=== PATIENT | male | born 1945 | race Caucasian/White ===

== ENCOUNTER 2016-08-20 10:31 | Inpatient (IN) | payer MEDICARE, OTHER ==
[~2016-08-20] VITALS: Ht 175.3 cm; Wt 75.6 kg
[~2016-08-20 10:31] MED LIST: BACTRIM DS DPS1 TAB PO; BENICAR HCT 401 EAC1 PO; COUMADIN DPS3 MG PO; COUMADIN6 MG PO; DELTASONE DPS5 MG PO; GLUCOPHAGE1000 MG PO; INVOKANA300 MG PO; JANUVIA100 MG PO; KEFLEX-DPS500 MG PO; LEVAQUIN DPS500 MG PO; MAALOX DPS30 ML PO; MICRONASE DPS5 MG PO; MIRALAX PACKET17 GM PO; PEPCID DPS20 MG PO; PLAQUENIL DPS200 MG PO; SURFAK DPS240 MG PO; TYLENOL DPS325 MG PO
--- NOTE | 2016-08-21 07:36 | HP ---
ADMIT: 08/20/2016 RM/LOC: 518 [facility] MR#: [id number] 2620 [facility] [address] [place] [phone] MILI GARNER [address] [facility] [place] [address] History and Physical SEX: M AGE: 71 : 1945 DATE OF SERVICE: CHIEF COMPLAINT: Leg weakness and dehydration. HISTORY OF PRESENT ILLNESS: A 71-year-old male, lives at home with his sister who is his power of banking attorney and caregiver. Recently, he has had decreased oral intake but no vomiting. No fever. He has no urgency, frequency, or dysuria, has had problems with loose stools. This morning, he was not able to stand up or bear any weight due to leg weakness. He went down to the floor. It took several family members' considerable effort to got him into a wheelchair and brought him up to my office. In the office, he was found to be moderately dehydrated with dry mouth, not able to test for orthostasis, not able to stand up. He is admitted to the hospital at this time for dehydration and possible UTI, possible sepsis along with generalized weakness. His sister states he is having episodes over the last couple of months, where one day he will be able to walk the next day, his legs are too weak and he cant walk, just give out on him. PAST MEDICAL HISTORY: Hospitalized here last on July 06 of this year with vomiting, has history of atrial fibrillation, chronic or permanent, on anticoagulant therapy. He has diabetes mellitus type 2, hypertension, mild intellectual impairment, marked hearing impairment, rheumatoid arthritis, history of acne rosacea, and BPH with previous TURP. PAST SURGICAL HISTORY: The only surgeries include the TURP. ALLERGIES: NONE. CURRENT MEDICATIONS: Currently he is on: 1. Pepcid. 2. Lanoxin. 3. Verelan PM. 4. Plaquenil. 5. Coumadin. 6. Glyburide. 7. Januvia. 8. Metformin. SOCIAL HISTORY: He is never , had lived with his mother until her recent and then was living on his own until recently, when he became too weak as his sisters taken him. He does not use tobacco or alcohol. REVIEW OF SYSTEMS: Ten-point review of system negative from previous history and physical. FAMILY HISTORY: Positive coronary artery disease, atrial fibrillation. PHYSICAL EXAMINATION: GENERAL: A 71-year-old male, who is alert, cooperative, he is in a wheelchair. ADMIT: 08/20/2016 RM/LOC: 518 [facility] MR#: [id number] [address] [address] MILI GARNER [address] [place] [address] History and Physical SEX: M AGE: 71 : 1945 VITAL SIGNS: BP is 126/82, respiratory rate is 22, heart rate 95, temp is 98.5, O2 saturation is 96% on room air. Eyes PERRL. EOMs intact. TMs not seen. Throat is dry. No exudate. No inflammation. NECK: Supple. No meningeal signs. No lymphadenopathy. LUNGS: Clear to auscultation. Respirations not labored. HEART: Regular rate. No lifts, thrills, heaves. No murmur. ABDOMEN: Soft. Bowel sounds normoactive. No mass, megaly or tenderness. /RECTAL: Deferred. EXTREMITIES: No clubbing, cyanosis, or edema. DIAGNOSTIC IMPRESSION: 1. Moderate dehydration. 2. Lower extremity weakness, symmetrical. No focal signs. 3. Diabetes mellitus type 2. 4. Diabetic neuropathy. 5. Atrial fibrillation, on Coumadin therapy. 6. Hearing impairment. 7. Rheumatoid arthritis. PLAN: We will admit to hospital for IV fluids, monitor his blood sugars, and sliding scale insulin. Neurology consult. We will get MRI of the lumbosacral spine. Ponce Soto MD/ clementina JOB #: [id number] CC: Ponce Soto, Attending Physician Ponce Soto, Family Physician
--- NOTE | 2016-08-21 16:56 | CO ---
ADMIT: 08/20/2016 RM/LOC: 518 [facility] MR#: [id number] [address] [address] MILI GARNER [address] [place] [address] Consultation SEX: M AGE: 71 : 1945 DATE OF CONSULTATION: 08/20/2016 ATTENDING PHYSICIAN: Ponce Soto CONSULTING PHYSICIAN: Miller Muñoz MD REASON FOR CONSULTATION: Weakness of the extremities and falls. HISTORY OF PRESENT ILLNESS: The patient is a 71-year-old gentleman with past medical history as below, who was admitted for lower extremity weakness and falls. His family reports that he had some falls back in June after which he started to be shuffling more noticeably. He was gradually worsening over time and has an episode when he stands up uses a walker, and then after a few steps goes down with his legs being described as "from Jell-O." He complains of bilateral lower extremity pain, back pain, neck pain, and right arm pain. Except for one episode, there is no difficulty with urine and bowel control. It is of interest that the patient was better each time after he returned from Balance and Mobility treatment, but the effect did not last long. PAST MEDICAL HISTORY: Significant for diabetes mellitus, hypertension, atrial fibrillation on anticoagulants, hearing impairment, rheumatoid arthritis. MEDICATIONS: On outpatient basis include: 1. Glyburide. 2. Warfarin. 3. Digoxin. 4. Metformin. 5. Januvia. 6. Plaquenil. 7. Pepcid. ALLERGIES: HE IS NOT ALLERGIC TO ANY MEDICATION. SOCIAL HISTORY: There is no history of alcohol, tobacco, or illicit drug use. FAMILY HISTORY: Noncontributory to neurological presentation. REVIEW OF SYSTEMS: Difficult to obtain secondary to patient's deafness. PHYSICAL EXAMINATION: VITAL SIGNS: Temperature 97.0, heart rate 73, respirations 18, blood pressure 155/70, 96% on room air. GENERAL: He appears to be in no acute discomfort. HEAD: Normocephalic. NECK: Supple. CHEST: Normal respiratory rises. CARDIOVASCULAR: S1, S2 noted. ABDOMEN: Nondistended. EXTREMITIES: No clubbing or cyanosis. ADMIT: 08/20/2016 RM/LOC: 518 [facility] MR#: [id number] [address] [address] MILI GARNER [address] [place] [address] Consultation SEX: M AGE: 71 : 1945 NEUROLOGICAL EXAMINATION: The patient is awake, alert. His orientation is hard to assess secondary to his deafness and also to speech and language and following commands. We had to use lot of visual cuing to proceed fully with the examination. However, again, it is limited by his complete deafness. Cranial nerves; visual garces are intact. Pupils equal, reactive. Extraocular muscles intact. Facial sensation is normal. Face is symmetric. Hearing to voice absent. Uvula midline. Palatal arch is symmetric. Shoulder shrug symmetric. Tongue midline, freely moveable. Motor examination reveals full strength throughout with normal tone. There is no drift. Fine motor movements are intact. Repetitive movements are without reducing amplitude or frequency. Sensory examination examined with pain and vibration. Pain examination is normal. Vibration is reduced in toes, otherwise normal. Reflexes are brisk and symmetric in upper extremities and knees. Ankle reflexes are mildly reduced. On passive dorsiflexion of the foot, there is one clonus bilaterally. Babinski is flexor response bilaterally. Coordination; [id number] is smooth and intact. Gait; the patient needed help with getting out of bed. With the use of a gait belt, we were able to stand him up. He could not initiate a step and he started to shuffle. After 10-20 seconds, he became very unstable and wanted to sit down. Throughout the whole time, he was leaning backwards. LABORATORY DATA: Labs and results reviewed. CT of the head from 06/30/2016, there is generalized atrophy with quite a bit of white matter changes. The ventricular size appears to be unchanged when compared to CT from December 2011. Labs reviewed in [facility]. Glucose 215, calcium 8.4, albumin 2.7, GFR 66. CBC shows white count 8.3, hemoglobin 13.6, platelets 275. Sedimentation rate is 33. UA is clean. ASSESSMENT: 1. Parkinsonism. ADMIT: 08/20/2016 RM/LOC: 518 [facility] MR#: [id number] [facility] [address] [address] [place] [address] Consultation SEX: M AGE: 71 : 1945 2. Abnormal gait. 3. Falls. PLAN: We will obtain CT head to rule out increased ventricles when compared to June imaging. If normal, I will propose to start Sinemet with a dose 25/100 mg before meals t.i.d., Sinemet being administered 1 hour prior to all meals. We will also check orthostatic vital signs to rule out sudden drop of blood pressure after prolonged standing which may also contribute to his instability. Thank you very much for this interesting consultation. We will continue to follow. Miller Muñoz MD/ clementina JOB #: [id number] CC: Ponce Soto, Attending Physician Ponce Soto, Family Physician
--- NOTE | 2016-08-31 07:43 | DS ---
ADMIT: 08/21/2016 RM/LOC: 518 [facility] MR#: [id number] 2620 [facility] [address] [place] [phone] MILI GARNER [address] [facility] [place] [address] General Discharge Summary SEX: M AGE: 71 : 1945 ADMISSION DATE: 08/21/2016 DISCHARGE DATE: 08/24/2016 ADMITTING DIAGNOSIS: Dehydration. COMPLICATED DIAGNOSIS: Lower extremity weakness. DISMISSAL DIAGNOSES: 1. Parkinson's. 2. Complicating diagnosis of dehydration, resolved. 3. Diabetes mellitus type 2. 4. Diabetic neuropathy. 5. Chronic atrial fibrillation, on Coumadin therapy. 6. Hearing impaired. 7. Rheumatoid arthritis. 8. Mild intellectual disability. CHIEF COMPLAINT AND HISTORY OF PRESENT ILLNESS: A 71-year-old male, lives at home with his sister, who is his [id number]-rynuztlo and caregiver. Recently, he had decreased oral intake, but no vomiting or no fever. He has no urgency, frequency, or dysuria. He has had some trouble loose stools. This morning, he is not able to stand up or bear any weight due to leg weakness. He went down to the floor. After several family members considerable effort to get him into wheelchair, they brought him into my office. In the office, he was found to be mildly dehydrated and not able to stand up. He is admitted at this time to the hospital for dehydration, possible UTI, and sepsis. Sister states over the last couple months, he has had multiple episodes where he was not able to walk and the next day he can walk fine. His legs seemed to be weak and he cannot walk when they give out and the next day he will be fine. CONSUTLANT: Dr. Muñoz. LABORATORY REPORTS: White count was 8.3, hemoglobin 13.6, and platelets were 275,000. Sedimentation rate borderline elevated at 33. INR on admission was 2.87, prior to dismissal was 1.93. Electrolytes; sodium was 138, potassium 3.6, chloride 101, CO2 of 28, BUN 9, creatinine 0.7, glucose 123, calcium 8.8. Blood sugars monitored during the hospital stay were generally in the [address] scan of the lumbar spine for back pain, showed no signs of any acute fracture or subluxation. There is diffuse idiopathic skeletal hyperostosis of the lumbar spine, disc bulging at L3-L4 with posterior bridging osteophyte with moderate central canal stenosis. CT of the head, showed stable ventriculomegaly, no evidence of any acute changes. CT of the cervical spine, showed multilevel degenerative cervical spondylolysis with progression of anterior bridging osteophytes from C3 through C7 compared to previous CT scan. Flexion-extension cervical spine did not show any hypermobile segment. ADMIT: 08/21/2016 RM/LOC: 518 [facility] MR#: [id number] [address] [place] [id number] [place] [address] General Discharge Summary SEX: M AGE: 71 : 1945 HOSPITAL COURSE: He was admitted and was started on IV fluids. Neurology consult was obtained. X-ray studies were obtained as noted above. Dr. Muñoz felt the patient had Parkinson's and did start him on Sinemet 25 mg t.i.d. before meals. Physical Therapy and Occupational Therapy was consulted for ambulation. He is still quite weak and not able really to ambulate. INRs were monitored. His INR did go up a little bit and his Coumadin was held. Sinemet was increased to 1.5 tablet t.i.d. 1 hour before meals. He was placed on Lopressor for his high blood pressure. Due to his weakness, he was not able to be cared for at home. He was transferred to inpatient rehab for further physical therapy. MEDICATIONS: At time of transfer to rehab: 1. Coumadin 6 mg daily. 2. Metformin 1000 mg b.i.d. 3. Januvia 100 mg daily. 4. Lanoxin 0.125 mg daily. 5. Lopressor 50 mg t.i.d. 6. Micronase 5 mg b.i.d. 7. Pepcid 20 mg b.i.d. 8. Plaquenil 200 mg b.i.d. 9. Sinemet 1.5 tablet t.i.d., 1 hour before meals 25/100 mg tablet. PRN medications: 1. Maalox. 2. Surfak. 3. Tylenol. He is to have PT/OT. He is to have CBC, BMP, and INR in a week. Ponce Soto MD/ clementina JOB #: [id number] CC: Ponce Soto MD, Attending Physician Ponce Soto MD, Family Physician
[2016-09-16] MEDS ORDERED: DUONEB DPS3 ML IH ×2 (14:06→14:11)
[2016-09-16] MEDS ORDERED: LANOXIN DPS0.125 MG MS (14:06)
[2016-09-16] MEDS ORDERED: METOPROLOL TART25 MG MS (14:07)
[2016-09-16] MEDS ORDERED: LEVAQUIN DPS25 MG/ML MS (14:07)
[2016-09-16] MEDS ORDERED: COUMADIN DPS3 MG GT (14:08)
[2016-09-16] MEDS ORDERED: PEPCID DPS20 MG MS (14:08)
[2016-09-16] MEDS ORDERED: NORVASC5 MG MS (14:08)
[2016-09-16] MEDS ORDERED: DIFLUCAN DPS100 MG GT (14:09)
[2016-09-16] MEDS ORDERED: CATAPRES-DPS0.1 MG TD (14:10)
[2016-09-16] MEDS ORDERED: SURFAK DPS240 MG PO (14:10)
[2016-09-16] MEDS ORDERED: LOVENOX DP40 MG/0.4 SQ (14:10)
[2016-09-16] MEDS ORDERED: GLUCAGON HCL1 MG IM (14:11)
[2016-09-16] MEDS ORDERED: GLUTOSE 1537.5 GM MS (14:11)
[2016-09-16] MEDS ORDERED: MAALOX DPS30 ML MS (14:11)
[2016-09-16] MEDS ORDERED: SENOKOT S1 TAB MS (14:12)
[2016-09-16] MEDS ORDERED: ROBITUSSIN200 MG/10 MS (14:12)
[2016-09-16] MEDS ORDERED: ZOFRAN4 MG MS (14:13)
[2016-09-16] MEDS ORDERED: DULCOLAX-DPS10 MG PR (14:13)
[2016-09-16] MEDS ORDERED: TYLENOL DPS325 MG MS (14:13)
[2016-09-16] MEDS ORDERED: TYLENOL DP650 MG/20. MS (14:13)
[2016-09-16] MEDS ORDERED: SPORTS CREAM85 GM TP (14:14)
[2016-09-16] MEDS ORDERED: TYLENOL-DPS650 MG PR (14:14)
[2016-09-16] MEDS ORDERED: NITROSTAT0.4 MG SL (14:14)
[2016-09-16] MEDS ORDERED: MICRONASE DPS5 MG PO (14:15)
[2016-09-16] MEDS ORDERED: GLUCOPHAGE1000 MG PO (14:16)
[2016-09-16] MEDS ORDERED: PLAQUENIL DPS200 MG PO (14:16)
[2016-09-16] MEDS ORDERED: JANUVIA100 MG PO (14:16)
== END 2016-08-24 10:05 | disposition short-term general hospital (02) | DRG 57 ==
LOC: 5MS 10:31 → EDBD 08-24 10:05 → 5MS 08-24 10:05
PROVIDERS: ADMIT Family Medicine
DX: G20 Parkinson's disease (principal); E11.40 Type 2 diabetes mellitus with diabetic neuropathy, unspecified; I48.2 Chronic atrial fibrillation; E86.0 Dehydration; I10 Essential (primary) hypertension; F70 Mild intellectual disabilities; H91.90 Unspecified hearing loss, unspecified ear; R26.9 Unspecified abnormalities of gait and mobility; M54.2 Cervicalgia; R53.1 Weakness; M06.9 Rheumatoid arthritis, unspecified; Z79.84 Long term (current) use of oral hypoglycemic drugs; Z79.899 Other long term (current) drug therapy; Z79.01 Long term (current) use of anticoagulants; Z82.49 Family history of ischemic heart disease and other diseases of the circulatory system; Z91.81 History of falling

== ENCOUNTER 2016-08-24 10:07 | Inpatient (IN) | payer MEDICARE, OTHER ==
[~2016-08-24] VITALS: Ht 175.3 cm; Wt 74.8 kg
--- NOTE | 2016-08-27 14:15 | NUR ---
DAY SHIFT SUMMARY:[facility] SOFT DIET, MOD ASSIST; SEE OT FIM SCORE AND NOTES FOR GROOMING,SHOWER,DRESSING & SHOWER TRANSFER. MOD ASSIST OF 1 AND GRAB BAR/DEPENDS FOR TOILETING; MOD ASSIST OF 1 FOR STAND PIVOT BED/CHAIR/W/C/TOILET TRANSFERS; TOTAL ASSIST FOR W/C PROPULSION.
--- NOTE | 2016-09-04 21:24 | NUR ---
DAY SHIFT SUMMARY: 1700 PT TRANSFERRED TO ACUTE CARE RT RESP S/S; EATING AND GROOMING SUPERVISED; ABLE TO TAKE EARLY MED WHOLE W/ H20, BUT LATER NEEDED THEM CRUSHED- DID OK W/ APPLESAUCE; HAD TROUBLE W/ MEDS CRUSHED IN PUDDING. MIN ASSIST FOR BED/W/C TRANSFER; TOTAL ASSIST FOR W/C PROPULSION;MAX ASSIST FOR AMBULATION W/WALKER
[2016-09-16] MEDS ORDERED: LANOXIN DPS0.125 MG MS (14:06)
[2016-09-16] MEDS ORDERED: DUONEB DPS3 ML IH ×2 (14:06→14:11)
[2016-09-16] MEDS ORDERED: METOPROLOL TART25 MG MS (14:07)
[2016-09-16] MEDS ORDERED: LEVAQUIN DPS25 MG/ML MS (14:07)
[2016-09-16] MEDS ORDERED: NORVASC5 MG MS (14:08)
[2016-09-16] MEDS ORDERED: COUMADIN DPS3 MG GT (14:08)
[2016-09-16] MEDS ORDERED: PEPCID DPS20 MG MS (14:08)
[2016-09-16] MEDS ORDERED: DIFLUCAN DPS100 MG GT (14:09)
[2016-09-16] MEDS ORDERED: SURFAK DPS240 MG PO (14:10)
[2016-09-16] MEDS ORDERED: CATAPRES-DPS0.1 MG TD (14:10)
[2016-09-16] MEDS ORDERED: LOVENOX DP40 MG/0.4 SQ (14:10)
[2016-09-16] MEDS ORDERED: MAALOX DPS30 ML MS (14:11)
[2016-09-16] MEDS ORDERED: GLUCAGON HCL1 MG IM (14:11)
[2016-09-16] MEDS ORDERED: GLUTOSE 1537.5 GM MS (14:11)
[2016-09-16] MEDS ORDERED: SENOKOT S1 TAB MS (14:12)
[2016-09-16] MEDS ORDERED: ROBITUSSIN200 MG/10 MS (14:12)
[2016-09-16] MEDS ORDERED: TYLENOL DP650 MG/20. MS (14:13)
[2016-09-16] MEDS ORDERED: TYLENOL DPS325 MG MS (14:13)
[2016-09-16] MEDS ORDERED: ZOFRAN4 MG MS (14:13)
[2016-09-16] MEDS ORDERED: DULCOLAX-DPS10 MG PR (14:13)
[2016-09-16] MEDS ORDERED: SPORTS CREAM85 GM TP (14:14)
[2016-09-16] MEDS ORDERED: TYLENOL-DPS650 MG PR (14:14)
[2016-09-16] MEDS ORDERED: NITROSTAT0.4 MG SL (14:14)
[2016-09-16] MEDS ORDERED: MICRONASE DPS5 MG PO (14:15)
[2016-09-16] MEDS ORDERED: PLAQUENIL DPS200 MG PO (14:16)
[2016-09-16] MEDS ORDERED: GLUCOPHAGE1000 MG PO (14:16)
[2016-09-16] MEDS ORDERED: JANUVIA100 MG PO (14:16)
--- NOTE | 2016-10-03 07:13 | DS ---
ADMIT: 08/24/2016 RM/LOC: 604 [facility] MR#: [id number] 26[address] [facility] [address] [place] [address] [place], [place] [address] General Discharge Summary SEX: M AGE: 71 : 1945 ADMISSION DATE: 08/24/2016 DISCHARGE DATE: 09/04/2016 DISCHARGE DIAGNOSES: Neurologic conditions 03.2 parkinsonism; G20, Parkinson's disease; onset 08/20/2016. Comorbid conditions per initial H and P. Other diagnoses per hospital course below. HOSPITAL COURSE: Please see my initial H and P for details prior to transfer to the IRU. Lab was monitored regularly. Pepcid decreased for GERD. Sinemet decreased due to side effects. Senokot-S for constipation. He was continued on Coumadin, which served as DVT prophylaxis. Neurology followed up on 08/24/2016. The patient was on mechanical soft extra gravy sauce with thin liquids per Speech Therapy. Postvoid residuals were normal. Neurology followed up on 08/25/2016 and 08/26/2016. Coumadin held due to supratherapeutic INR and INR was monitored daily until in the normal range again. Magnesium replaced. Dietitian followed to optimize nutrition. Pharmacy followed to optimize medication management. B12 found to be low and so was replaced with IM injections and then followed by p.o. Iron deficiency replaced with Feosol and vitamin C. Robitussin DM for cough. Accu-Cheks q.a.c. and at bedtime per home routine. KCl given for hypokalemia. Slow-Mag given for hypomagnesemia and placed on Mag-Ox. Pepcid discontinued. Coumadin again held for supratherapeutic INR. Carbs counted, adjusted for diabetic diet. Vitamin D deficiency replaced. Sinemet increased to 1.5 q.a.c. due to shuffling gait, seemed to do worse on that again with some side effects and so was decreased down to one pill three times a day with meals. Sportscreme to wrist pain for De Quervain's tenosynovitis t.i.d. and p.r.n., ice also given for that. Coumadin adjusted, daily INR. Feosol, vitamin C, Slow-Mag all discontinued and was replaced adequately. Lopressor adjusted for hypertension. LSVT BIG therapy done. UA with micro, no culture due to delirium. DuoNeb done p.r.n. respiratory distress and recheck stool for C. difficile. EzPAP done, tried to wean patient off the O2. DuoNeb and EzPAP b.i.d. Micronase decreased for diabetes. Coumadin adjusted, INR frequency decreased. UA with micro, no culture repeated. Incentive spirometry encouraged. EzPAP p.r.n. inadequate incentive spirometry. Chest x-ray portable for hypoxemia on 09/03/2016. Sportscreme no longer necessary regularly, but kept p.r.n. Encouraged p.o. fluids due to azotemia. Thought dehydration might be a reason for his delirium as well. Workup was done for his condition on 09/04/2016 including CBC, lactic acid, procalcitonin, blood culture and sensitivity. CBC, BMP, INR, Hep-Lock IV, Zosyn, vancomycin IV, sputum culture and sensitivity. All this for suspected pneumonia. DuoNeb ordered. Sinemet decreased to half pill with meals. Diagnosis of Parkinson's in question. Induce sputum for obtaining appropriate culture. IV antibiotics ADMIT: 08/24/2016 RM/LOC: 604 [facility] MR#: [id number] [address] [place] [address] [place] [address] General Discharge Summary SEX: M AGE: 71 : [address] Soto, inpatient sepsis protocol followed, but not the severe sepsis protocol. Modified barium swallow study. Plan for 09/05/2016, 500 mL normal saline bolus on 09/04/2016. Lactic acid, repeated. Procalcitonin done with CBC and BMP. Patient became medically complex and required transfer to the 4th floor PCU with pulmonology consult per Dr. Soto. DISCHARGE DISPOSITION: Fourth floor PCU. DISCHARGE MEDICATIONS: Please see discharge med rec. Please see IRU interdisciplinary discharge summary for details regarding progress in therapy. FOLLOWUP: To be determined. Macario Galeano MD/ clementina JOB #: [id number] CC:
== END 2016-09-04 18:23 | disposition short-term general hospital (02) | DRG 56 ==
LOC: 6IRU 10:07 → EDBD 09-04 18:23 → 6IRU 09-04 18:23
PROVIDERS: ADMIT Physical Medicine & Rehabilitation
DX: G20 Parkinson's disease (principal); J18.9 Pneumonia, unspecified organism; E11.9 Type 2 diabetes mellitus without complications; F02.80 Dementia in other diseases classified elsewhere, unspecified severity, without behavioral disturbance, psychotic disturbance, mood disturbance, and anxiety; E83.42 Hypomagnesemia; I48.91 Unspecified atrial fibrillation; M06.9 Rheumatoid arthritis, unspecified; E83.39 Other disorders of phosphorus metabolism; D50.9 Iron deficiency anemia, unspecified; E53.8 Deficiency of other specified B group vitamins; I10 Essential (primary) hypertension; E86.0 Dehydration; E87.6 Hypokalemia; R41.0 Disorientation, unspecified; M65.9 Synovitis and tenosynovitis, unspecified; H91.90 Unspecified hearing loss, unspecified ear; E55.9 Vitamin D deficiency, unspecified; R09.02 Hypoxemia; M62.81 Muscle weakness (generalized); I95.1 Orthostatic hypotension; T42.8X5A Adverse effect of antiparkinsonism drugs and other central muscle-tone depressants, initial encounter; Y92.230 Patient room in hospital as the place of occurrence of the external cause; Z79.01 Long term (current) use of anticoagulants; Z79.84 Long term (current) use of oral hypoglycemic drugs

== ENCOUNTER 2016-09-04 18:59 | Inpatient (IN) | payer MEDICARE, OTHER ==
[~2016-09-04] VITALS: Ht 175.3 cm; Wt 79.3 kg
--- NOTE | ~2016-09-04 | OR ---
ADMIT: 09/04/2016 RM/LOC: 429 [facility] MR#: [id number] [facility]#: [id number] 2620 [facility] [address] [place] [phone] MILI GARNER [address] [place] [address] Operative/Delivery Room Report SEX: M AGE: 71 : 1945 SURGERY DATE: 09/11/2016 SURGEON: Micha Gutiérrez MD PREPROCEDURE DIAGNOSES: 1. Aspiration pneumonia. 2. Failure to thrive. POSTPROCEDURE DIAGNOSIS: EGD PEG tube placement. INDICATIONS: The patient is 71-year-old with recurrent issues with aspiration pneumonia, failed a barium swallow study who presents for EGD PEG tube placement. FINDINGS: The patient was taken to the endoscopy suite, IV sedation was given. He remained in the supine position. The gastroscope was introduced down the oropharynx, down the esophagus, into the stomach, through the pylorus, and the normal duodenum, nonobstructive pylorus. With transillumination and palpation, we found a safe area on the left subcostal region for G-tube placement. We prepped with chlorhexidine, injected 1% lidocaine. I made 1 cm transverse skin incision using #11 blade. An Angiocath was placed into the stomach and a wire was threaded through our Angiocath and grasped with the wire loop and brought out through the mouth. The PEG tube was threaded over our wire and brought to the anterior abdominal wall with skin markings at 4 cm. The PEG tube was assembled. The gastroscope was replaced down the oropharynx and into the stomach showing the G-tube in excellent position. The gastroscope was removed. The patient tolerated the procedure without difficulty, transferred to recovery room in good condition. Micha Gutiérrez MD/ clementina JOB #: [id number] CC: Ponce Soto, Attending Physician Ponce Soto, Family Physician
--- NOTE | 2016-09-10 11:11 | CO ---
ADMIT: 09/04/2016 RM/LOC: 429 [facility] MR#: [id number] [address] [address] MILI GARNER [address] [place] [address] Consultation SEX: M AGE: 71 : 1945 DATE OF CONSULTATION: 09/07/2016 ATTENDING PHYSICIAN: Ponce Soto CONSULTING PHYSICIAN: Micha Gutiérrez MD REASON FOR CONSULTATION: Failed swallow study. HISTORY OF PRESENT ILLNESS: Mili is a very pleasant 71-year-old male, who has been admitted to the hospital for aspiration pneumonia. The following history was obtained from family and his POA due to mental disability. According to his POA, he has been having this issue for weeks going on months. Initially, they thought he had an issue chewing his food but turns out as more of an issue of swallowing his food. Family does not report any symptoms of pain, nausea, diarrhea, or constipation. The patient also denies these symptoms as well. Due to his symptoms, a swallow study was performed today, which revealed high risk of aspiration. PAST MEDICAL HISTORY: Significant for: 1. Deafness. 2. Parkinson's. 3. Diabetes. 4. Diabetic neuropathy. 5. Atrial fibrillation. 6. Rheumatoid arthritis. 7. Intellectual disability. PAST SURGICAL HISTORY: Prostate surgery. ALLERGIES: NO KNOWN DRUG ALLERGIES. MEDICATIONS: Well documented in chart. He is on Coumadin. FAMILY HISTORY: Noncontributory. SOCIAL HISTORY: Family reports no drugs, alcohol, or tobacco use. REVIEW OF SYSTEMS: Unobtainable due to patient's status. PHYSICAL EXAMINATION: GENERAL: The patient is in no acute distress. He is alert. HEENT: Head is normocephalic and atraumatic. EOMS are intact. Conjunctivae free of icterus, erythema, or pallor. Pinnae, free of deformities. Nose, midline. No tracheal deviation. NECK: Supple. SKIN: Negative for jaundice, clubbing, edema, pallor, or cyanosis. LUNGS: Normal respiratory effort. He is on O2. HEART: Distal pulses intact. Irregularly irregular rhythm. ABDOMEN: Soft, nondistended, mild tenderness in left lower quadrant. No ADMIT: 09/04/2016 RM/LOC: 429 [facility] MR#: [id number] [address] [address] MILI GARNER [address] [place] [address] Consultation SEX: M AGE: 71 : 1945 surgical scars noted on abdomen. NEURO: Cranial nerves II through XII appear to be intact grossly. LABORATORY DATA: INR 2.64. White count 10.8, hemoglobin 13.1. ASSESSMENT: 1. Aspiration, high risk n.p.o. 2. Aspiration pneumonia. PLAN: So far the family is requesting a second opinion with Dr. Lord. Although, I agree with this I think it is unlikely there will be much else to offer for this patient. However, we will hold off putting him on the schedule for an EGD with PEG tube placement until the family is certain they want to go through with this. His INR is also elevated, so we will plan sometime for the PEG tube next week if family would like to go through with this. I discussed the risks, alternatives, benefits, and complications of EGD with PEG tube with the POA to which she is in agreement of this plan, had all her questions answered and would like to proceed. We will see how the patient does over the weekend and await the family's final input. Thank for the consultation of this patient. LANCE Acosta / Micha Gutiérrez MD / clementina JOB #: [id number] CC: Ponce Soto, Attending Physician Ponce Soto, Family Physician
[2016-09-14] MEDS ORDERED: PROTONIX40 MG PO (20:11)
[2016-09-14] MEDS ORDERED: NEURONTIN DPS300 MG PO (20:11)
[2016-09-14] MEDS ORDERED: ZOLOFT DPS50 MG PO (20:11)
[2016-09-14] MEDS ORDERED: COREG3.125 MG PO (20:12)
[2016-09-14] MEDS ORDERED: LASIX DPS40 MG PO (20:12)
[2016-09-14] MEDS ORDERED: FENOFIBRATE160 MG PO (20:12)
[2016-09-14] MEDS ORDERED: ZESTRIL DPS5 MG PO (20:12)
[2016-09-14] MEDS ORDERED: ZOCOR80 MG PO (20:12)
[2016-09-14] MEDS ORDERED: NOVOLOG100 UNIT/2 SQ ×2 (20:13→20:15)
[2016-09-14] MEDS ORDERED: XANAX DPS0.5 MG PO (20:13)
[2016-09-14] MEDS ORDERED: LANTUS SOL100 UNIT/1 SQ (20:13)
[2016-09-16] MEDS ORDERED: LANOXIN DPS0.125 MG MS (14:06)
[2016-09-16] MEDS ORDERED: DUONEB DPS3 ML IH ×2 (14:06→14:11)
[2016-09-16] MEDS ORDERED: METOPROLOL TART25 MG MS (14:07)
[2016-09-16] MEDS ORDERED: LEVAQUIN DPS25 MG/ML MS (14:07)
[2016-09-16] MEDS ORDERED: COUMADIN DPS3 MG GT (14:08)
[2016-09-16] MEDS ORDERED: NORVASC5 MG MS (14:08)
[2016-09-16] MEDS ORDERED: PEPCID DPS20 MG MS (14:08)
[2016-09-16] MEDS ORDERED: DIFLUCAN DPS100 MG GT (14:09)
[2016-09-16] MEDS ORDERED: CATAPRES-DPS0.1 MG TD (14:10)
[2016-09-16] MEDS ORDERED: SURFAK DPS240 MG PO (14:10)
[2016-09-16] MEDS ORDERED: LOVENOX DP40 MG/0.4 SQ (14:10)
[2016-09-16] MEDS ORDERED: MAALOX DPS30 ML MS (14:11)
[2016-09-16] MEDS ORDERED: GLUTOSE 1537.5 GM MS (14:11)
[2016-09-16] MEDS ORDERED: GLUCAGON HCL1 MG IM (14:11)
[2016-09-16] MEDS ORDERED: SENOKOT S1 TAB MS (14:12)
[2016-09-16] MEDS ORDERED: ROBITUSSIN200 MG/10 MS (14:12)
[2016-09-16] MEDS ORDERED: TYLENOL DPS325 MG MS (14:13)
[2016-09-16] MEDS ORDERED: ZOFRAN4 MG MS (14:13)
[2016-09-16] MEDS ORDERED: DULCOLAX-DPS10 MG PR (14:13)
[2016-09-16] MEDS ORDERED: TYLENOL DP650 MG/20. MS (14:13)
[2016-09-16] MEDS ORDERED: SPORTS CREAM85 GM TP (14:14)
[2016-09-16] MEDS ORDERED: NITROSTAT0.4 MG SL (14:14)
[2016-09-16] MEDS ORDERED: TYLENOL-DPS650 MG PR (14:14)
[2016-09-16] MEDS ORDERED: MICRONASE DPS5 MG PO (14:15)
[2016-09-16] MEDS ORDERED: GLUCOPHAGE1000 MG PO (14:16)
[2016-09-16] MEDS ORDERED: JANUVIA100 MG PO (14:16)
[2016-09-16] MEDS ORDERED: PLAQUENIL DPS200 MG PO (14:16)
--- NOTE | 2016-09-17 10:28 | OR ---
ADMIT: 09/04/2016 RM/LOC: 421 [facility] MR#: [id number] [address] [address] MILI GARNER [address] [place] [address] Operative/Delivery Room Report SEX: M AGE: 71 : 1945 SURGERY DATE: 09/12/2016 SURGEON: Ras Ruiz MD PREOPERATIVE DIAGNOSIS: Left lower lung atelectasis, strong but ineffective cough for getting rid of mucus. DESCRIPTION OF PROCEDURE The bronchoscopy was done under anesthesia through the endotracheal tube. Large amount of creamy, light yellowish mucus seen on both sides completely plugging the lower lobes. It could be aspirated by suctioning and with repeated irrigation with saline solution until clear. Mixed wash has been sent in for microbiological and cytological studies. Procedure was very well tolerated. Ras Ruiz MD/ pattyl JOB #: [id number] CC: Ponce Soto, Attending Physician Ponce Soto, Family Physician Ponce Soto MD
--- NOTE | 2016-09-23 21:15 | CO ---
ADMIT: 09/04/2016 RM/LOC: 429 [facility] MR#: [id number] 2620 [facility] [address] [place] [id number] MILI WHITING [address] [address] Consultation SEX: M AGE: 71 : 1945 DATE OF CONSULTATION: 09/09/2016 ATTENDING PHYSICIAN: Ponce Soto CONSULTING PHYSICIAN: Ursula Rogers MD REASON FOR CONSULT: Elevated PT, PTT, INR. HISTORY OF PRESENT ILLNESS: This is a pleasant 71-year-old, gentleman who lives at the home with his sister who is the power of employee benefits attorney and caregiver, has had decreased oral intake, no vomiting, and then he has been admitted to the hospital for rehab and strengthening, then found to have pneumonia, aspiration, and then transferred to regular floor and then found to have an elevated PT, PTT, INR when the labs were checked for the planned PEG tube placement. Initially, there seems to be no history of Coumadin or other blood thinner medication used and Hematology consult requested for incidental finding of elevated PT, INR, PTT. PAST MEDICAL HISTORY: He has had hospitalized back in June for vomiting. He has a history of AFib, chronic, on anticoagulant therapy based on the past medical records. He has been off the Coumadin for the last few weeks reportedly, but his PT, INR, and PTT were elevated. FAMILY HISTORY: Negative for any blood clots or any cancers or hematologic disorder. Positive for coronary artery disease and AFib. CURRENT MEDICATIONS: 1. Pepcid. 2. Lanoxin. 3. Verelan. 4. Plaquenil. 5. Viibryd. 6. There was a questionable history of Coumadin. SOCIAL HISTORY: Never and lived with his mother until her recent and living on his own recently. No history of tobacco or alcohol. REVIEW OF SYSTEMS: Hard to communicate at times. No nausea or vomiting. No blood in the urine. No blood in the stool. No chest pain. No hearing or vision problems. No aches or pains. No black stools. No hematemesis or melena. Rest of the systems are positive for decreased hearing, decreased ambulation related to his underlying medical problems. PHYSICAL EXAMINATION: VITAL SIGNS: Temperature 98, blood pressure 126/82, pulse rate 22, and heart rate 95. HEAD, EARS, EYES, NOSE, THROAT: Normocephalic, atraumatic. Extraocular muscles intact. NECK: Supple. No JVD. No lymph nodes palpable. CHEST: Sounds clear to auscultation and percussion. ADMIT: 09/04/2016 RM/LOC: 429 [facility] MR#: [id number] [address] [place] [id number] [place] [address] Consultation SEX: M AGE: 71 : 1945 HEART: Normal S1 and S2. No S3 or S4. No murmurs. ABDOMEN: Soft, nontender. No organomegaly. Bowel sounds positive. EXTREMITIES: No cyanosis, clubbing, or edema. No petechia, ecchymosis, or bruising. LABORATORY DATA: Pro-time more than 100, INR more than 10, PTT is 44. ASSESSMENT AND PLAN: Mr. Whiting is a pleasant, 71-year-old, gentleman with incidental finding of elevated PT, PTT, and INR. Possibilities include drug related iatrogenic, and there is some confusion how long he has been on Coumadin or if he has been on it recently or not. I will go ahead and do the mixing studies as well as order the lupus anticoagulant and factor VIII level as well as the inhibitor if it is low. If mixing studies shows this is correcting, then it could be Coumadin related or it could be lupus anticoagulant. If no indication there, it could be the factor VIII inhibitor, and we could treat that differently with Rituxan based or steroid based regimens. I will agree with 1 unit of fresh frozen plasma ordered by Dr. Ochoa and then oral vitamin K, and we will monitor her numbers and make further decision. This encounter took 60 minutes, 35 minutes was [id number]. Ursula Rogers MD/ clementina JOB #: [id number] CC: Ponce Soto, Attending Physician Ponce Soto, Family Physician
--- NOTE | 2016-09-24 08:53 | CO ---
ADMIT: 09/04/2016 RM/LOC: 429 [facility] MR#: [id number] [address] [address] MILI GARNER [address] [place] [address] Consultation SEX: M AGE: 71 : 1945 DATE OF CONSULTATION: 09/07/2016 ATTENDING PHYSICIAN: Ponce Soto CONSULTING PHYSICIAN: Micha Gutiérrez MD HISTORY OF PRESENT ILLNESS: The patient is a 71-year-old male with mental disabilities who was having issues with aspiration pneumonia who failed a recent swallow study. I have been asked to see for possible EGD PEG tube placement. His past medical history, surgery, allergies, medications, family history, social history, review of systems are outlined in the patient's chat. PHYSICAL EXAMINATION: He has had no previous abdominal surgeries. No other previous scars. HEART: Regular. LUNGS: Clear. No peripheral edema. ASSESSMENT AND PLAN: The patient is a 71-year-old whom the family wants to discuss the issue further with Dr. Lord and his caregivers regarding possible EGD PEG tube placement. Concern is also been brought up regarding continual aspiration despite just G tube. We did share with Dr. Ochoa that G-tube could be converted to a GJ tube if needed. Currently because the family is concerned and question still surrounding the procedure and patient having elevated INR, we will wait for this to drift down and wait for family discussion prior to scheduling. Micha Gutiérrez MD/ pattyl JOB #: [id number] CC: Ponce Soto, Attending Physician Ponce Soto, Family Physician
--- NOTE | 2016-09-24 08:53 | CO ---
ADMIT: 09/04/2016 RM/LOC: 429 [facility] MR#: [id number] [address] [address] MILI GARNER [address] [place] [address] Consultation SEX: M AGE: 71 : 1945 DATE OF CONSULTATION: 09/08/2016 ATTENDING PHYSICIAN: Ponce Soto CONSULTING PHYSICIAN: Micha Gutiérrez MD ADDENDUM: Mili is a 71-year-old male with mental disability, who has been admitted to the hospital, and I have been consulted for problems with aspiration pneumonia and a failed barium swallow study. We have been asked to place possible PEG tube. His past medical history, past surgical history, allergies, medications, family history, social history, and review of systems are outlined in the patient's chart and Eliud Narayan's note. PHYSICAL EXAMINATION: HEART: Regular. LUNGS: Clear. ABDOMEN: Soft, nondistended, and nontender with no previous surgical scars on his abdomen. ASSESSMENT AND PLAN: I am visiting with Eliud and the family. At this point in time, his INR is elevated. They are uncertain whether they want to proceed with PEG tube. They wanted to visit with Dr. Lord regarding other potential treatment options. I reviewed Dr. Ochoa's note, and it is true with the PEG tube can still have problems with aspiration and regurgitation with G-tube feedings, but may be able to potentially convert the G-tube to a GJ tube if needed. We will wait to see what the decisions are made regarding Dr. Lord and their family decisions regarding a G-tube, and we will allow his INR to drift back to a nontherapeutic level. Micha Gutiérrez MD/ clementina JOB #: [id number] CC: Ponce Soto, Attending Physician Ponce Soto, Family Physician
--- NOTE | 2016-09-28 07:48 | DS ---
ADMIT: 09/04/2016 RM/LOC: 421 [facility] MR#: [id number] [address] [address] [place] [address] General Discharge Summary SEX: M AGE: 71 : 1945 ADMISSION DATE: 09/04/2016 DISCHARGE DATE: 09/14/2016 ADMITTING DIAGNOSIS: Hypoxemia. DISMISSAL DIAGNOSIS: Pneumonia secondary to aspiration. COMPLICATING DIAGNOSES: 1. Diabetes mellitus type 2. 2. Parkinson's. 3. Chronic atrial fibrillation. 4. Adult failure to thrive. 5. Hypokalemia. 6. Hypoxemia. 7. Rheumatoid arthritis. 8. Mild intellectual disabilities. 9. Long-term anticoagulant use. CONSULTANTS: Micha Gutiérrez MD, Ursula Rogers MD, and Ras Ruiz MD. CHIEF COMPLAINT AND HISTORY OF PRESENT ILLNESS: See history and physical for details. A 71-year-old male, lives at home with his sister, who is his power of tax associate attorney and caregiver. Recently, he has had decreased oral intake, but no vomiting and no fever. This morning, he was not able to stand up or bear any weight due to leg weakness. He went down to the floor. It took several family members to get him to wheelchair and brought him up to the office. In the office, he was found to be moderately dehydrated, too weak to stand up. He is admitted to hospital for dehydration, UTI, and possible sepsis. LABORATORY SUMMARY: Please see lab summary sheets for details. Hemoglobin prior to dismissal was 13.1, white count was 10.8. INR prior to dismissal was 2.64. Electrolytes prior to dismissal; sodium 145, potassium 4.0, chloride 112, CO2 of 25, BUN 8, creatinine 1.0, and glucose 162. Liver enzymes were normal. Lactic acid was normal at 1.3. ABGs on 1 L of O2 showed a pH corrected 7.47, pCO2 corrected of 33.6, corrected PO2 of 66.6. RADIOLOGY REPORTS: CT of the head without contrast, showed no acute changes present, stable-appearing ventriculomegaly. Chest x-ray showed progression of interstitial opacities bilaterally with lungs less well aerated that was on September 05 or . No significant change. September 07, interstitial thickening, pleural effusions, bibasilar opacity stable from previous exam. Modified barium swallow was performed, refer to the speech therapist's report. On september 09, chest x-ray showed modest improvement in right lower lobe pneumonia, on September 11 was stable. PROCEDURES: On September 11, PEG tube was placed for feeding. On September 12, bronchoscopy was performed with lavage of purulent material present. ADMIT: 09/04/2016 RM/LOC: 421 [facility] MR#: [id number] [address] [address] [place] [address] General Discharge Summary SEX: M AGE: 71 : 1945 COURSE IN THE HOSPITAL: Mili was transferred from inpatient rehab to 4th floor PCU due to hypoxemia, felt to be due to aspiration. Sepsis workup was started. Pulmonary consult was obtained. He was continued on IV antibiotics that have been already started on the rehab unit, which was Zosyn and vancomycin. Pulmonology felt he had aspiration pneumonia. Speech Therapy agreed. He was at high risk for aspiration; therefore, after discussion with family members specifically his sister, Leticia, who is power of tax associate attorney, we will proceed with placement of a feeding tube, try to get him stronger, gain some weight and strength back and hopefully eventually be able to eat orally again. They realized for quality of life issues that he would not be at long- term feeding tube, but for 1 to 2 months to try the feeding tube to increase his strength level back up to where he had been or he could start taking things orally again. They are not able to care for him at home, so arrangements were made for transfer to [facility]. At time of dismissal, he was tolerating the feeding tubes without any difficulty. He was transferred to [facility]. Refer to his discharge medication list. He will be followed up in the office in 2 weeks. He is to continue with the feeding tube and not have oral intake other than rinsing his mouth out. The PEG tube insertion site was healing well. Ponce Soto MD/ clementina JOB #: [id number] CC: Ponce Soto MD, Attending Physician Ponce Soto MD, Family Physician
--- NOTE | 2016-09-28 08:44 | CO ---
ADMIT: 09/04/2016 RM/LOC: 429 [facility] MR#: [id number] [address] [address] [place] WHITING [address] [place] [address] Consultation SEX: M AGE: 71 : 1945 DATE OF CONSULTATION: 09/05/2016 ATTENDING PHYSICIAN: Ponce Soto CONSULTING PHYSICIAN: Michi Li MD REASON FOR CONSULTATION: Pneumonia aspiration. HISTORY OF PRESENT ILLNESS: Mr. Whiting is a pleasant 71-year-old gentleman, who was in the skilled portion of facility and yesterday developed respiratory distress, cough and oxygen needs. There is a question of whether he had a vomiting episode. Procalcitonin level was 0.18. He did have some mild sepsis and subsequently he has been treated appropriately and his labs have improved. Chest x-ray performed on the revealed evidence of bilateral pulmonary infiltrates consistent with pneumonia. He has been appropriately started on antibiotics to treat healthcare-associated pneumonia, also associated with aspiration. Currently he is awake and alert. He is extremely hard of hearing. He has a mild cough. There is no chest pain. There are low-grade temperatures. There is no acute dyspnea and I cannot get much more history than that from the patient. The chart is reviewed. PAST MEDICAL HISTORY: Parkinson's, diabetes, diabetic neuropathy, chronic atrial fibrillation on Coumadin, hearing impairment, rheumatoid arthritis, mild intellectual disability. The patient was recently admitted with dehydration, weakness, and failure to thrive. MEDICATIONS: 1. Coumadin. 2. Metformin. 3. Januvia. 4. Lanoxin. 5. Lopressor. 6. Micronase. 7. Plaquenil. 8. Pepcid. 9. Sinemet. P.r.n. medicines are reviewed. ALLERGIES: REVIEWED. REVIEW OF SYSTEMS: Fairly benign and not very reliable. His history and physical was reviewed. PHYSICAL EXAMINATION: VITAL SIGNS: Temp 98, pulse 80, respirations 12, 130/70. HEENT: Within normal limits. NECK: No JVD or bruits. HEART: Regular rate. No murmur or gallop. LUNGS: Rhonchi and rales, left greater than right. ADMIT: 09/04/2016 RM/LOC: 429 [facility] MR#: [id number] [address] [address] [place] WHITING [address] [place] [address] Consultation SEX: M AGE: 71 : 1945 ABDOMEN: Soft. Bowel sounds positive. Nontender. Nondistended. No organosplenomegaly. EXTREMITIES: No cyanosis, clubbing, or edema. GENITORECTAL: Deferred. LABORATORY TESTING: The white blood cell count was 9200 on 08/30. Subsequently yesterday, the white count was 10,700, hemoglobin 12.8, and platelets were 242,000. Basic metabolic panel essentially within normal limits except for mildly elevated glucose. Pro-time was 3.29. Procalcitonin had improved to 0.12. Arterial blood gases showed pH 7.46, pCO2 of 34, and PO2 of 69. Lactic acid was 1.5. Chest x-ray shows bilateral pulmonary infiltrates, left greater than right. IMPRESSION: 1. This is a pleasant 71-year-old gentleman, who was admitted with acute hypoxemia secondary to probable aspiration pneumonia. He has a history of Parkinson's and has recently been hospitalized putting him at increased risk for healthcare-associated pathogens. I agree with current treatment regimen and plans. He did have mild sepsis on transfer, but now has improved. His oxygen is low flow. He is on DuoNeb treatments for lung expansion and secretion clearance. 2. Parkinson's. 3. Failure to thrive. 4. Hearing impaired. 5. History of atrial fibrillation, on Coumadin. 6. Question of aspiration. We would get a speech therapy consultation and swallow test when able. Thank you for having me see him. Michi Li MD/ clementina JOB #: [id number] CC: Ponce Soto, Attending Physician Ponce Soto, Family Physician
== END 2016-09-14 13:05 | DRG 178 ==
LOC: 4PCU 18:59 → EDBD 09-14 13:05 → 4PCU 09-14 13:05
PROVIDERS: ADMIT Family Medicine
PROC: 30233K1 Transfusion of Nonautologous Frozen Plasma into Peripheral Vein, Percutaneous Approach (ICD-10-PCS; 2016-09-09)
PROC: 0DH63UZ Insertion of Feeding Device into Stomach, Percutaneous Approach (ICD-10-PCS; principal; 2016-09-11)
PROC: 3E0G76Z Introduction of Nutritional Substance into Upper GI, Via Natural or Artificial Opening (ICD-10-PCS; 2016-09-11)
PROC: 0BC68ZZ Extirpation of Matter from Right Lower Lobe Bronchus, Via Natural or Artificial Opening Endoscopic (ICD-10-PCS; 2016-09-12)
PROC: 0BCB8ZZ Extirpation of Matter from Left Lower Lobe Bronchus, Via Natural or Artificial Opening Endoscopic (ICD-10-PCS; 2016-09-12)
DX: J69.0 Pneumonitis due to inhalation of food and vomit (principal); E46 Unspecified protein-calorie malnutrition; E11.40 Type 2 diabetes mellitus with diabetic neuropathy, unspecified; R13.10 Dysphagia, unspecified; G20 Parkinson's disease; I48.2 Chronic atrial fibrillation; J98.09 Other diseases of bronchus, not elsewhere classified; R62.7 Adult failure to thrive; E87.6 Hypokalemia; R09.02 Hypoxemia; H91.90 Unspecified hearing loss, unspecified ear; M06.9 Rheumatoid arthritis, unspecified; F70 Mild intellectual disabilities; R79.89 Other specified abnormal findings of blood chemistry; R21 Rash and other nonspecific skin eruption; T36.95XA Adverse effect of unspecified systemic antibiotic, initial encounter; Z79.899 Other long term (current) drug therapy; Z79.01 Long term (current) use of anticoagulants

== ENCOUNTER 2016-09-17 23:22 | Inpatient (IN) | payer MEDICARE, OTHER ==
[~2016-09-17] VITALS: Ht 172.7 cm; Wt 73.4 kg
[~2016-09-17 23:22] MED LIST changes: +CATAPRES-DPS0.1 MG TD; +COREG3.125 MG PO; +COUMADIN DPS3 MG GT; +DIFLUCAN DPS100 MG GT; +DULCOLAX-DPS10 MG PR; +DUONEB DPS3 ML IH; +FENOFIBRATE160 MG PO; +GLUCAGON HCL1 MG IM; +GLUTOSE 1537.5 GM MS; +LANOXIN DPS0.125 MG MS; +LANTUS SOL100 UNIT/1 SQ; +LASIX DPS40 MG PO; +LEVAQUIN DPS25 MG/ML MS; +LOVENOX DP40 MG/0.4 SQ; +MAALOX DPS30 ML MS; +METOPROLOL TART25 MG MS; +NEURONTIN DPS300 MG PO; +NITROSTAT0.4 MG SL; +NORVASC5 MG MS; +NOVOLOG100 UNIT/2 SQ; +PEPCID DPS20 MG MS; +PROTONIX40 MG PO; +ROBITUSSIN200 MG/10 MS; +SENOKOT S1 TAB MS; +SPORTS CREAM85 GM TP; +TYLENOL DP650 MG/20. MS; +TYLENOL DPS325 MG MS; +TYLENOL-DPS650 MG PR; +XANAX DPS0.5 MG PO; +ZESTRIL DPS5 MG PO; +ZOCOR80 MG PO; +ZOFRAN4 MG MS; +ZOLOFT DPS50 MG PO
--- NOTE | 2016-09-22 19:55 | ER ---
ADMIT: 09/18/2016 RM/LOC: 309 [facility] MR#: [id number] [address] [address] [place] [address] Emergency Room Report SEX: M AGE: 71 : 1945 DATE: 09/17/2016 HISTORY OF PRESENT ILLNESS: The patient is a 71-year-old male, resident of [facility], transferred tonight after large emesis and aspiration, arrived hypotensive, tachypneic. The patient was discharged 3 days ago after 24-day stay for healthcare-acquired pneumonia and sepsis. PAST MEDICAL HISTORY: ILLNESSES: Atrial fibrillation, chronically anticoagulated, type 2 diabetes, hypertension, healthcare-acquired pneumonia, BPH, Parkinson's like illness, hard of hearing, rheumatoid arthritis, acne rosacea, cognitive impairment, UTI, and sepsis. OPERATIONS: Recent PEG tube, bronchoscopy diagnostic and therapeutic, and TURP in the remote past. ALLERGIES: NONE. MEDICATIONS: Please see nurse's MAR. SOCIAL HISTORY: Resident of correction. Nonsmoker, nondrinker. FAMILY HISTORY: Negative per chart review. REVIEW OF SYSTEMS: Unreliable due to altered level of consciousness and cognitive impairment as well as severe hearing loss. PHYSICAL EXAMINATION: VITAL SIGNS: Temp 98.7, pulse 100, respirations 30, BP 141/67, SaO2 of 89%, non-rebreather. GENERAL: Marked respiratory distress, hypotension, diaphoresis. HEENT: Normocephalic. No evidence of epistaxis, rhinorrhea, or otorrhea. NECK: Supple without lymphadenopathy or thyromegaly. CHEST: Breath sounds equal. Expiratory wheeze noted throughout. HEART: Tachycardic, regular without murmur, gallop, trace ankle edema. ABDOMEN: Soft, nontender, nondistended without mass or megaly. PEG tube noted. EXTREMITIES: Moves all extremities. No lateralizing signs. MEDICAL DECISION MAKING: The patient is in extreme respiratory distress on arrival, responded well to BiPAP /6, DuoNeb aerosol x2 followed by continuous albuterol 15 mg in line with BiPAP, Solu-Medrol 125 mg IV push, magnesium 2 g IV piggyback, and vancomycin 1 g IV piggyback and Zosyn 3.375 g IV piggyback. WBC 16.5 left shift. CRP 8.71. Lactic 4.9. Procalcitonin less than 0.05. Sodium 162, glucose 486. BN peptide 2277. Troponin is 0.026. UA negative. INR 1.28. EKG shows atrial fibrillation with repolarization changes unchanged from June 30, 2016. Chest x-ray, no acute findings. Notified Dr. Vargas and Marah of admission. Dr. Crystal gave orders to nursing staff due ADMIT: 09/18/2016 RM/LOC: 309 [facility] MR#: [id number] [address] [place] [address] Emergency Room Report SEX: M AGE: 71 : 1945 to the patient's presentation, findings, and intervention. Thirty minutes of critical care is warranted. IMPRESSION: 1. Aspiration possible healthcare-acquired pneumonia. 2. Acute exacerbation of chronic obstructive pulmonary disease. 3. Hypoxemia associated with acute respiratory failure. 4. Hypernatremia. RECOMMENDATION: Admit inpatient ICU for Dr. Soto. ADMISSION/DISCHARGE CONDITION: Stable. The patient is a full code. Sukhdeep Jordan MD/ pattyl JOB #: [id number] CC: Ponce Soto MD, Attending Physician Ponce Soto MD, Family Physician
--- NOTE | 2016-09-24 08:53 | CO ---
ADMIT: 09/18/2016 RM/LOC: 309 [facility] MR#: [id number] [address] [address] [place] [address] Consultation SEX: M AGE: 71 : 1945 DATE OF CONSULTATION: 09/18/2016 ATTENDING PHYSICIAN: Ponce Soto CONSULTING PHYSICIAN: Luana Flores APRN TIME IN: 0930 hour. TIME-OUT: 1030 hours. REASON FOR CONSULTATION: Supportive care consultation was requested by Dr. Soto for discussion of goals for care. HISTORY OF PRESENT ILLNESS: Mr. Whiting is a 71-year-old male with a history of mild cognitive impairment as well as rheumatoid arthritis. He has had multiple hospital stays over the past few months for sepsis and weakness. During his last hospital stay, he was found to have severe dysphagia and actually failed his modified barium swallow resulting in a PEG tube being inserted before he left our facility. He has been at [facility] receiving therapy. In discussion with the family, he has had ongoing decline since June of 2016. He was readmitted last evening after questionable aspiration event. He does meet sepsis criteria and he is being treated for pneumonia. He remains on BiPAP therapy. Due to his multiple complexities, supportive care consultation was requested to discuss goals for care. In terms of advanced directives, the patient is a do not resuscitate/do not intubate status. In terms of medical decision making, the patient does have "guardian" that has been appointed. His brother Nathaniel Rodriguez is a guardian and also his sister Leticia Rodriguez whose phone #[phone] and is his guardian as well. It does appear that Leticia is his primary guardian. The patient does not have a living will or POLST form on file. Symptomatically, the patient appears fairly comfortable. He remains on the BiPAP. His breathing is slightly labored. He is weak and debilitated. PAST MEDICAL HISTORY: 1. Recurrent sepsis. 2. Atrial fibrillation. 3. Diabetes mellitus type 2. 4. Hypertension. 5. rheumatoid arthritis. 6. Mild cognitive impairment. 7. History of rosacea. 8. BPH with previous TURP. ALLERGIES: THE PATIENT HAS NO KNOWN MEDICATION ALLERGIES. CURRENT MEDICATIONS: Please see the patient's MAR for specific routes and ADMIT: 09/18/2016 RM/LOC: 309 [facility] MR#: [id number] [address] [address] [place] [address] Consultation SEX: M AGE: 71 : 1945 dosages. His current medications are as follows. 1. Vancomycin. 2. Lanoxin. 3. Coumadin. 4. Plaquenil. 5. Zantac. 6. Norvasc. 7. Multivitamin. 8. Lopressor. 9. Januvia. 10.Diflucan. 11.Catapres. 12.NovoLog. 13.Maalox. 14.Glutose. 15.Glucagon. 16.Zosyn. 17.Zofran. 18.Bengay. 19.DuoNeb. 20.Tylenol. 21.Nitrostat. SOCIAL HISTORY: The patient has never been , and lived with his mother until she recently . He lived on his own for a little bit, but then became weak and his sister has been taking care of him. He does not use alcohol or tobacco. FAMILY HISTORY: Significant for coronary artery disease, and atrial fibrillation. FUNCTIONAL REVIEW: Up until June, he could pretty much take care of his own ADLs. His intake was normal. In discussion with his family prior to this hospital stay, he was completely dependent for ADLs. He was in the wheelchair or bed most of the time. He was requiring feeding through a feeding tube. Palliative performance scale prior to admission was a 30% to 40%. Currently, he is bed-bound. He is total care. He is mouth care only and he is lethargic. His current palliative performance scale is a 10%. REVIEW OF SYSTEMS: A 10-point review of systems was attempted. However, due the patient's mentation, this was unable to be obtained. PHYSICAL EXAMINATION: GENERAL: The patient is examined in the bed. He is in no acute distress. VITAL SIGNS: Temperature 98.9, pulse 87, respirations 34, blood pressure 123/34, oxygen 95% on the BiPAP. HEENT: Head is normocephalic. Pupils are not examined. Oral mucosa pink and moist with fair dentition. ADMIT: 09/18/2016 RM/LOC: 309 [facility] MR#: [id number] [address] [address] [place] [address] Consultation SEX: M AGE: 71 : 1945 NECK: Supple. RESPIRATORY: Respirations are slightly labored and shallow. LUNGS: Diminished. CARDIOVASCULAR: Tachycardic. No murmurs, rubs, or gallops. 1+ bilateral lower extremity edema noted. GASTROINTESTINAL: Soft, nontender. Bowel sounds are hypoactive. GENITOURINARY: He has a Joseph draining clear yellow urine. MUSCULOSKELETAL: Generalized weakness. No obvious joint deformities. INTEGUMENTARY: Skin turgor is fair. NEUROLOGIC: Lethargic. He is not oriented. PSYCHIATRIC: Calm and cooperative. No agitation noted. DIAGNOSTIC DATA: Sodium 162, potassium 3.2, BUN 42, creatinine 2.4, albumin 2.6, total protein 7.5. WBC 9.9, hemoglobin 13.7, hematocrit 47.1, platelets of 257. IMPRESSION: 1. Physical debility. 2. Lethargy. 3. Mild cognitive impairment. 4. Dysphagia with aspiration risk. 5. Malaise. 6. Moderate protein-calorie malnutrition. 7. Tachypnea. 8. Aspiration pneumonia. 9. History of urosepsis. 10.Rheumatoid arthritis. 11.History of atrial fibrillation. 12.Palliative care. 13.The patient is a DNR/DNI. PLAN: I was able to meet with the patient's siblings including his guardians Leticia and Nathaniel at the bedside. The patient is lethargic and unable to participate in medical decision making. We reviewed his overall status and goals for the time ahead. They report progressive decline over the past few months. They feel that his quality of life is now very poor specifically with feeding tube that he has recently received. They state that eating has been one of his main chaitanya's and now this has been something that he cannot participate in. They feel that he will continue to decline in the time ahead. After discussion, they state that they would like to focus on comfort only at this time. We did review the logistics of comfort care and also hospice philosophy. They understand that we could start comfort care here in the hospital and if he is stable enough transition out of the hospital with hospice care. I am very clear with him at this point, I do not feel that he would likely be able to get out of the hospital and that he would likely decline very quickly once we headed towards comfort care specifically with removal of the BiPAP. They verbalized understanding of this and they are prepared for this. I did encourage them to discuss their thoughts with ADMIT: 09/18/2016 RM/LOC: 309 [facility] MR#: [id number] [address] [address] [place] [address] Consultation SEX: M AGE: 71 : 1945 Charles as he knows the patient very well. Dr. Vargas is covering for Dr. Soto today and did have a discussion with the family stating that Dr. Soto would support comfort care in the situation. At this point, family has decided to proceed with comfort care starting now. We will discontinue all non-comfort related interventions including lab, x-ray, therapies, antibiotics, and BiPAP therapy. As mentioned, they are prepared that he may decline very quickly. The doughnut machine operator has already visited with the family and they declined his second visit. We will address comfort order set and assist with any future goals and support needs in the time ahead. We would like to thank Dr. Soto for the invitation to participate in this patient's care. Total consultation time was 60 minutes from 0930 hours to 1030 hours with 35 minutes from 0935 hours to 1010 hours spent [id number] with the patient and family discussing goals for care and providing counseling and support. The plan of care was discussed with Dr. Vargas as well as nursing. Luana Flores APRN/ clementina JOB #: [id number] CC: Ponce Soto, Attending Physician Ponce Soto, Family Physician
--- NOTE | 2016-09-26 07:45 | HP ---
ADMIT: 09/18/2016 RM/LOC: 309 [facility] MR#: [id number] [address] [address] [place] [address] History and Physical SEX: M AGE: 71 : 1945 Corrected: 09/18/2016 0857 njv DATE OF SERVICE: CHIEF COMPLAINT: Shortness of breath, hypoxia, altered mental status. HISTORY OF PRESENT ILLNESS: The patient is a 71-year-old male, who was recently just discharged from our service here at the hospital to [facility], most recently being admitted for leg weakness and dehydration. The patient has had multiple hospitalizations recently and has had some deterioration in his health. The patient has a PEG tube for tube feedings; however, today has no tube feeding. The patient had a bout of emesis which then caused him to cough, and then patient was found to have a SaO2 saturation into the 70% at [facility]. The patient was then transferred to the ER for further workup. It is suspected that patient likely has an aspiration pneumonia. He has had a history of this in the past. Chest x-ray in the ER shows some possible pneumonia on the right. However, radiology read has not yet been done. When he came into the ER, the patient was saturating in the low 90s on BiPAP. ER workup shows a UA that does not show any signs of a UTI. Did have elevated glucose, however. ABG was pH of 7.427 with pCO2 of 48.2 and PO2 of 51. Blood cultures were drawn. CBC; white blood cell count was 16.5, hemoglobin was 15.7, platelets were 260. Lactic acid is 4.9 initially and it raised to 8.8. On recheck, PT/INR was 13.4 and 1.28. The patient is on Coumadin. Procalcitonin was actually within the normal limits. CMP; the patient has an elevated sodium at 162, potassium 3.7, chloride 118, carbon dioxide 32, BUN 35, creatinine 1.7, glucose of 46. Albumin was low. Alkaline phosphatase was elevated at 181 likely due to acute phase reactant. AST and ALT were normal. Mag was slightly high at 2.6. CK, MB, and troponin were all within normal limits. ProBNP was elevated at 2277. CRP was 8.71, which is also elevated. The patient was started on IV fluids and admitting sepsis protocol due to his respiratory rate, altered mental status. The patient was started on vancomycin and Zosyn. The patient was admitted to the ICU for further care. PAST MEDICAL HISTORY: Significant for last hospitalization in early August, history of atrial fibrillation, on chronic anticoagulation, diabetes, hypertension, mild intellectual impairment, marked hearing impairment, rheumatoid arthritis, acne rosacea, BPH with previous TURP. PAST SURGICAL HISTORY: Listed in the chart. ALLERGIES: NONE. CURRENT MEDICATIONS: Include: 1. Tylenol as needed for pain or fever. 2. Coumadin 5 mg daily. 3. Catapres patch 1 every seven days. 4. Diflucan 100 mg for infection everyday. 5. DuoNebs. ADMIT: 09/18/2016 RM/LOC: 309 [facility] MR#: [id number] [address] [place] [address] [place] [address] History and Physical SEX: M AGE: 71 : 1945 6. Januvia 100 mg daily. 7. Lanoxin 125 mg daily. 8. He is currently on Levaquin 25 mg/mL, 20 mL every day. 9. Metoprolol three times a day 25 mg. 10.Lovenox. 11.Mag-Al Plus for reflux. 12.Metformin 1000 mg b.i.d. 13.MiraLax. 14.Multivitamin. 15.Norvasc 5 mg daily. 16.Pepcid 20 mg twice daily. 17.Plaquenil 200 mg twice daily. 18.Robitussin. 19.Senokot. 20.Sportscreme for pain. 21.Zofran 4 mg as needed every 6 hours. SOCIAL HISTORY: Never . He used to live his mother until recent . The patient does have some intellectual disability. He was living on his own until recently, now he is living at [facility]. He does not use tobacco or alcohol. REVIEW OF SYSTEMS: Difficult to obtain as patient was altered and was using BiPAP machine. Most of my history of what was going on came from the patient's family as well as my discussion with the [facility] this evening. FAMILY HISTORY: Positive for coronary artery disease and atrial fibrillation. PHYSICAL EXAMINATION: GENERAL: A 71-year-old male, who is in some acute distress as far as breathing. VITAL SIGNS: He is requiring BiPAP to stay at an appropriate SpO2. However, his heart rate is elevated. VITAL SIGNS: Most recent vital signs are temperature of 100.5, pulse of 86, respiratory rate of 53, blood pressure of 133/63, O2 saturation was 96%. HEENT: Normocephalic and atraumatic. BiPAP mask is in place. HEART: Regular rate and rhythm currently. No murmurs. LUNGS: Did have coarse breath sounds bilaterally, likely more on the left side than the right. This could be secondary to patient's BiPAP. ABDOMEN: Soft, nontender. Positive bowel sounds. Of note, the patient has had episodes of diarrhea recently while once arriving to the floor. EXTREMITIES: No edema. No joint erythema or swelling. NEURO: The patient, currently, is a little altered. He does not really respond to my prompting. GENITOURINARY: Deferred. RECTAL: Deferred. DIAGNOSTIC IMPRESSION: 1. Aspiration pneumonia. ADMIT: 09/18/2016 RM/LOC: 309 [facility] MR#: [id number] [address] [address] [place] [address] History and Physical SEX: M AGE: 71 : 1945 2. Dysphagia with dependent on PEG tube. 3. Type 2 diabetes. 4. Atrial fibrillation. 5. Hearing impairment. 6. Rheumatoid arthritis. 7. Hypernatremia, sodium 162. We will admit the patient to the hospital for IV fluids, antibiotics. We will monitor his blood sugars with sliding scale insulin. We will consult Palliative Care at this time as there was some question on goals of care between the family members. Some wished to do more of a comfort cares method and some would rather do DNR/DNI and otherwise do everything. Trend lactic acid as well. We will start the patient on some hypotonic sodium saline to help lower down the sodium. We will also replace potassium as needed. We will continue BMP's every 2 hours to follow the potassium level. Tracey Crystal MD Resident / Ponce Soto MD / clementina JOB #: [id number] CC: Ponce Soto, Attending Physician Ponce Soto, Family Physician Corrected: 09/18/2016 0857 njv
--- NOTE | 2016-10-04 07:28 | DS ---
ADMIT: 09/18/2016 RM/LOC: 309 [facility] MR#: [id number] [address] [address] [place] [address] General Discharge Summary SEX: M AGE: 71 : 1945 ADMISSION DATE: 09/18/2016 DISCHARGE DATE: 09/20/2016 CONSULT: Supportive care. PROCEDURES: None. FINAL DIAGNOSES: 1. Right/left lower pneumonia secondary to aspiration. 2. Altered mental status. 3. Hypoxia. 4. Type 2 diabetes. 5. Dysphagia, dependent on PEG tube. 6. Atrial fibrillation. 7. Rheumatoid arthritis. 8. Hypernatremia. HOSPITAL COURSE: The patient was admitted to the hospital after being found to be more altered and having difficulty breathing after aspiration at the assisted. He was recently just discharged from the hospital for dehydration and altered mental status. He was altered and requiring increased O2 supplementation when arriving to the ER. He was dependent on BiPAP to treat his hypoxia. The patient was started on vancomycin and Zosyn. Ultimately, family had concerns about patient's prognosis, and supportive care was consulted. After discussion with the supportive care team, the family decided that that the patient's interestes would be best served with comfort care measures. These were implemented ad the patient on 09/20/2016. CODE STATUS: DNR DNI/comfort cares. Tracey Crystal MD Resident / Ponce Soto MD / modl JOB #: [id number] CC: Ponce Soto MD, Attending Physician Ponce Soto MD, Family Physician
== END 2016-09-20 06:25 | disposition expired | DRG 871 ==
LOC: EDBD 23:22 → ER 23:22 → 3ICU 09-18 02:08
PROVIDERS: ADMIT Family Medicine
DX: A41.9 Sepsis, unspecified organism (principal); J69.0 Pneumonitis due to inhalation of food and vomit; J96.01 Acute respiratory failure with hypoxia; E87.0 Hyperosmolality and hypernatremia; E44.0 Moderate protein-calorie malnutrition; R13.10 Dysphagia, unspecified; J44.1 Chronic obstructive pulmonary disease with (acute) exacerbation; I48.91 Unspecified atrial fibrillation; I10 Essential (primary) hypertension; Z51.5 Encounter for palliative care; E11.9 Type 2 diabetes mellitus without complications; F70 Mild intellectual disabilities; R06.82 Tachypnea, not elsewhere classified; N40.0 Benign prostatic hyperplasia without lower urinary tract symptoms; H91.90 Unspecified hearing loss, unspecified ear; M06.9 Rheumatoid arthritis, unspecified; L71.9 Rosacea, unspecified; Z79.01 Long term (current) use of anticoagulants; Z66 Do not resuscitate; Z82.49 Family history of ischemic heart disease and other diseases of the circulatory system